=== PATIENT | male | born 1980 | race Caucasian/White ===

== ENCOUNTER 2022-01-20 13:48 | Emergency (ER) | payer SELFPAY ==
[2022-01-20 14:14] VITALS: BP 142/100; PULSE 89
[2022-01-20] MEDS ORDERED: Ketorolac 30 MG/ML SDV IM ONE (14:21)
== END 2022-01-20 14:51 | disposition home or self-care (01) ==
LOC: MW.ED 13:48
DX: K04.7 Periapical abscess without sinus (principal)
CPT/HCPCS: 96372; 99282; 99283; J1885

== ENCOUNTER 2023-11-17 17:33 | Emergency (ER) | payer SELFPAY ==
[2023-11-17 17:59] VITALS: PULSE 97
[2023-11-17] MEDS: Sulfamethoxazole/Trimethoprim 800-160 MG Tab PO ONE (18:53)
[2023-11-17] MEDS: Ibuprofen 600 MG Tab PO ONE (18:53)
[2023-11-17 18:57] VITALS: BP 134/94
== END 2023-11-17 18:58 | disposition home or self-care (01) ==
LOC: MW.ED 17:33
DX: L72.3 Sebaceous cyst (principal); Z75.8 Other problems related to medical facilities and other health care; Z79.899 Other long term (current) drug therapy
CPT/HCPCS: 10060; 99283; A9270